=== PATIENT | female | born 1955 | race Hispanic/Latino ===

== ENCOUNTER 2017-04-08 06:55 | Emergency (ER) | payer OTHER | END 2017-04-08 10:12 | disposition EXP | LOC: EDH 06:55 | DX: I46.9 Cardiac arrest, cause unspecified (principal); C25.9 Malignant neoplasm of pancreas, unspecified; C78.7 Secondary malignant neoplasm of liver and intrahepatic bile duct; C78.02 Secondary malignant neoplasm of left lung; C78.01 Secondary malignant neoplasm of right lung; Z90.710 Acquired absence of both cervix and uterus ==